=== PATIENT | male | born 1990 | race African-American/Black ===

== ENCOUNTER 2017-10-30 14:25 | Emergency (ER) | payer OTHER ==
[2017-10-30] MEDS ORDERED: DIPHTH,PERTUSS(ACELL),TET 0.5 ML DISP.SYRIN IM ONE (14:30)
--- NOTE | 2017-10-30 14:30 | PDOC ---
Rapid Medical Evaluation Time Seen by Provider: 10/30/17 14:27 Medical Evaluation: I have performed a brief in-person evaluation of this patient. The patient presents with a chief complaint of: head laceration. was at work. was hit in head with metal. He is not UTD on tetanus. No LOC. Pertinent physical exam findings: 1cm very superficial laceration to left parietal region of scalp. I have ordered the following: tetanus The patient will proceed to the ED for further evaluation. Discharge Disposition - Diagnosis Laceration of head - Referrals - Patient Instructions - Post Discharge Activity
[2017-10-30 14:34] VITALS: BP 114/68; PULSE 58; TEMP 98.1; BMI 22.9
--- NOTE | 2017-10-30 15:22 | PDOC ---
History of Present Illness - General Chief Complaint: Head/Neck problem Stated Complaint: HEAD INJURY Time Seen by Provider: 10/30/17 14:27 History Source: Patient Exam Limitations: No Limitations - History of Present Illness Initial Comments: 10/30/17 15:11 Itching came for evaluation of superficial head injury to scalp. 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 Patient incurred a small contusion with a superficial abrasion/ laceration to scalp. Incident occurred approximately 3 hours ago. There was no LOC, no ear or nose drainage, no neck pain, no other injury. Came for evaluation. Tetanus is uncertain Occurred: reports: just prior to arrival, this afternoon Severity: reports: mild, moderate Pain Location: reports: head Method of Injury: Yes: direct blow Modifying Factors: improves with: None Loss of Consciousness: no loss of consciousness Associated Symptoms (Fall): denies symptoms Past History - Travel Traveled outside of the country in the last 30 days: No Close contact w/someone who was outside of country & ill: No - Past Medical History Allergies/Adverse Reactions: Allergies Allergy/AdvReac Type Severity Reaction Status Date / Time No Known Allergies Allergy Verified 10/30/17 14:30 Home Medications: Ambulatory Orders NK [No Known Home Medication] 10/30/17 - Suicide/Smoking/Psychosocial Hx Smoking History: Never smoked Review of Systems - Review of Systems Able to Perform ROS?: Yes Is the patient limited Wolof proficient: Yes Constitutional: Yes: Symptoms Reported, See HPI, Malaise HEENTM: Yes: Symptoms Reported, See HPI Integumentary: Yes: Symptoms Reported, See HPI, Bruising Neurological: Yes: Symptoms reported, See HPI, Headache All Other Systems: Reviewed and Negative *Physical Exam - Vital Signs Last Vital Signs Temp Pulse Resp BP Pulse Ox 98.1 F 58 L 16 114/68 99 10/30/17 14:25 10/30/17 14:25 10/30/17 14:25 10/30/17 14:25 10/30/17 14:25 - Physical Exam General Appearance: Yes: Nourished, Appropriately Dressed, Apparent Distress, Mild Distress HEENT: positive: LISA, Normal ENT Inspection, TMs Normal (no hemotympanum, no drainage from nose or ears), Other (superficial abrasion to proximal leg 1 cm to left crown of head, no crepitus or step-offs, no bogginess, no active bleeding.) Neck: positive: Supple. negative: Tender Respiratory/Chest: positive: Lungs Clear, Normal Breath Sounds Integumentary: positive: Normal Color, Dry, Warm Neurologic: positive: intermediate project manager II-XII NML intact, Fully Oriented, Alert, Normal Mood/ Affect, Normal Response, Motor Strength 5/5 Procedures - Laceration/Wound Repair Left Head Wound Length: to 2.5 cm Wound Explored: clean Wound's Depth, Shape: superficial, linear Irrigated w/ Saline: Yes Betadine Prep: No Progress: 10/30/17 15:27 Wound is superficial, necessary closure. Cleaned and dressed with bacitracin ED Treatment Course - Medications Given in the ED: ED Medications Discontinued Medications Generic Name Dose Route Start Last Admin Trade Name Freq PRN Reason Stop Dose Admin Diphtheria/Tetanus/Acell Pertussis 0.5 ml 10/30/17 14:30 10/30/17 14:41 Boostrix - IM 10/30/17 14:31 0.5 ml .ONCE ONE Administration *DC/Admit/Observation/Transfer Diagnosis at time of Disposition: Laceration of head - Discharge Dispostion Disposition: HOME Condition at time of disposition: Stable Decision to Admit order: No - Referrals - Patient Instructions Printed Discharge Instructions: DI for Laceration Repair of the Scalp, DI for Closed Head Injury Additional Instructions: Rest, no exercise or gym until lilly are removed May use ice packs tonight as needed for swelling and pain Put a towel over pillow/old pillowcase to avoid damage from bacitracin and bleeding to linens until lilly removed Use antibiotic cream/ointment once in the morning once at night until lilly are removed May use Tylenol or Motrin for pain relief Return to emergency department for worsening pain, swelling, bleeding, or evidence of serious head injury Her tetanus/diphtheria/pertussis booster is updated today - Post Discharge Activity Forms/Work/School Notes: Back to Work
[2017-10-30] MEDS ORDERED: IBUPROFEN 600 MG TABLET (FP) PO ONE ×2 (15:24→15:31)
== END 2017-10-30 15:32 | disposition home or self-care (01) ==
LOC: JERFT 14:25
PROC: 3E0234Z Introduction of Serum, Toxoid and Vaccine into Muscle, Percutaneous Approach (ICD-10-PCS; principal; 2017-10-30)
DX: S01.01XA Laceration without foreign body of scalp, initial encounter (principal); S00.83XA Contusion of other part of head, initial encounter; W01.198A Fall on same level from slipping, tripping and stumbling with subsequent striking against other object, initial encounter; Y93.89 Activity, other specified; Y92.63 Factory as the place of occurrence of the external cause; Y99.0 Civilian activity done for income or pay
CPT/HCPCS: 90715; 99281-25